=== PATIENT | female | born 2005 | race Caucasian/White ===

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

== ENCOUNTER 2025-06-12 12:01 | Day surgery (SDC) | payer SELFPAY, OTHER ==
[2025-06-12] VITALS (8 sets, daily range): BP systolic 86–111; BP diastolic 56–78; PULSE 61–83; RESP 16; TEMP 36.3–36.7; O2SAT 97–100; BMI 28.8
[2025-06-12] MEDS: Lactated Ringers 1,000 ML 15 ML IV (12:39)
[2025-06-12 12:41] LABS: Hematocrit 40.8 % (37-47); Hemoglobin 13.6 g/dL (12.0-15.0); Immature Granulocytes Count 0.010 X10^3/uL (0.0-0.0); Mean Corp Hgb Conc 33.3 g/dL (32-36); Mean Corpuscular Volume 84.8 fL (81-99); Mean Platelet Vol. 10.7 fl (6.2-12.0); NRBC Flagged by Analyzer 0 % (0-5); Platelet Count 228 K/mm3 (150-450); RBC Distribution Width CV 13.0 % (11.6-14.6); RBC Distribution Width SD 40.3 fl (35.1-43.9); Red Blood Count 4.81 M/mm3 (4.2-5.4); White Blood Count 5.4 K/mm3 (4.4-11.0)
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
--- NOTE | 2025-06-12 13:30 | POC_PTH ---
PATIENT: YOGI TUBBS LOC: [facility] [place] U#:[id number] AGE/SX: 20/F ROOM: RE06/12/[address]: Dr. Vira Vines MD : 2005 BED: DIS: 06/12/2025 SPEC #: [id number] RECD: 06/12/25 17:52 STATUS: MAGUI REPippa #: [id number] HARINDER: 06/12/25 13:[address]: Vira Vines DEPT: SURGICAL PATHOLOGY RECD BY: Glen Rasmussen ENTERED: 06/13/25 09:57 SP TYPE: PROD CONC OTHR DR: No Primary Care Phys Tissues: A - Product of conception, NOS Procedures: Surgery Specimen Level IV HEADER OPERATION: Dilation and curettage, suction PRE-OP DIAGNOSIS: Incomplete TISSUE SUBMITTED: A- Products of conception MICROSCOPIC DIAGNOSIS A. Uterine contents, "incomplete ", dilation and curettage/suction: - Products of conception including immature chorionic villi with red blood cells, chorioamnionic membrane, decidua, and tissue - see note. Note: Scant tissue consistent with umbilical cord is noted in A3. Although evaluation is limited by tangential orientation, I favor the presence of 3 vessels microscopically. MICROSCOPIC DESCRIPTION Slides are reviewed. GROSS DESCRIPTION A. Received in formalin labeled with the patient's name and date of . Designated as "products of conception" is a 28.9 g, 7.7 x 7.4 x 1.0 cm aggregate of pale clark tissue fragments, papilliferous tissue (suspicious for chorionic villi) and mucoid material. A possible, translucent umbilical cord with two visible vessels is identified, 1.5 cm length by 0.4 cm diameter. Clinical Review Specialist sections are submitted in 3 cassettes, to include the possible umbilical cord in cassette A3. VT 06/13/2025 CPT:13360
--- NOTE | 2025-06-12 13:40 | PCM.HP.BLA ---
History and Physical MR#: [id number] Acct: [id number] Name: YOGI TUBBS Rep #: [id number] : 2005 Provider: Dr. Vira Vines MD Age/Sex: 20/F [place] [facility] [place]: Signed Intake Vital Signs 05/13/2511:58 06/10/2508:06 06/10/2510:32 Height 5 ft 7 in 5 ft 7 in 5 ft 7 in Weight: 183 lb 6 oz 184 lb 8 oz BMI 28.7 28.9 BP 112/62 121/80 H Intake Visit Reasons: 10w4d, spotting, spoke to nutritional assistant last night Justice [employer] Judge Required: No Is patient in pain?: No Allergies No Known Allergies Allergy (Verified 06/10/25 10:38) Medications Medication Instructions Recorded Confirmed Type docosahexaenoic acid 200 mg mg PO 05/13/25 06/10/25 History capsule ( DHA) Is last menstrual period known: Yes Last Menstrual Period: 03/28/25 Post menopausal: No Patient : Yes : No PFSH Medical History Asthma Surgical History [place] teeth removed Social History adopted: No household members: spouse current occupation: [employer] current occupational exposures/hazards: No pets and animals: Yes pets and animals: farm animals history of recent travel: Yes ([place] 01/2025) sexually active: Yes Smoking Status: Former smoker second hand exposure: No alcohol intake: current alcohol intake frequency: holidays/special occasions only details: Not while substance use type: does not use well-balanced diet: daily or most days caffeine: Yes Type: coffee Number of servings: 1 eating out: rarely or never during the past year weight has: increased > 10 lbs what type of physical activity do you participate in: walking frequency: 3-4 times per week duration: 15-30 minutes/day gabe/sikhism: Sameer seatbelt use: sometimes do you feel safe at home: Yes additional social history: : [employer] - [employer] HPI 10w4d, spotting, spoke to nutritional assistant last night Details: YOGI TUBBS is a 20 year old who presents for early bleeding she is supposed to be 10 weeks and she is only measuring 9weeks with no fht and no color doppler flow seen. she denies any crmaping, no nausea or other symtpoms. Female Reproductive History Last Menstrual Period: 03/28/25 History 1 Elective abortions Hx Para 0 Spontaneous abortions 0 Hx # Term Pregnancies Ectopic pregnancies Hx # Pregnancies Multiple births # of living children ROS Const Constitutional: Reports as per HPI; Denies fever(s) ENT ENT: Reports system reviewed and no additional complaints, except as documented Cardio Card: Reports system reviewed and no additional complaints, except as documented Resp Resp: Reports system reviewed and no additional complaints, except as documented GI GI: Reports as per HPI : Reports as per HPI Musc Musc: Reports system reviewed and no additional complaints, except as documented Skin Skin/Breast: Reports system reviewed and no additional complaints, except as documented Neuro Neuro: Reports system reviewed and no additional complaints, except as documented Endo Endo: Reports system reviewed and no additional complaints, except as documented Exam Const General: healthy appearing, comfortable and no acute distress HENMT Head: normal to inspection and normocephalic Neck Neck: no lymphadenopathy noted Thyroid: thyroid normal Chest Chest palpation & inspection: normal inspection of the chest Resp Effort & Inspection: normal respiratory effort Cardio Rate: regular rate Rhythm: regular rhythm GI Inspection: normal to inspection Palpation: soft and nontender External Female Exam: normal external appearance Speculum Exam - Vagina: normal appearance of the vagina and vaginal bleeding Bimanual Exam- Vagina & Uterus: uterine shape normal and non-tender OB/External & Speculum: vaginal bleeding Speculum Exam: vaginal bleeding Skin General: no rashes or lesions noted Neuro General: no focal motor deficits Extrem General: normal to inspection and no pedal edema Psych Appearance: grossly normal Coding Level of Care Code Off vis,new,level 3 Diagnoses Incomplete O03.4 Assessment and Plan Assessment and Plan (1) Incomplete : Status: Acute Comment: 9 weeks marty. plan suction d and c Plan After discussing the patient's diagnosis and treatment plan options, patient wishes to proceed with surgical management. I have discussed with the patient the risks, benefits, and alternatives of the procedure which include but are not limited to risks of anesthesia, bleeding, infection, possible damage to bowel, bladder, or surrounding vasculature which could lead to additional surgery to evaluate any complications. Patient agrees to procedure and wishes to proceed. ACOG/uptodate references given for additional information regarding procedure. UPDATE- I have seen the patient and performed any clinically relevant updates to the history and physical exam. Vira Vines MD
--- NOTE | 2025-06-12 13:41 | OP.PCM_ITS ---
Problems Associated Problem List Diagnoses (1) Incomplete : Procedures Urinary/Genital 52xxx-59xxx: 21426 Trmt of incomplete Ab, any TM Operative Report (Standard) Operative Information Date of Procedure: 06/12/25 Pre-Operative Diagnosis: see problem list comments Post-Operative Diagnosis: same Surgery/Procedure Performed: suction dilation and curettage rn clinical coordinator: No Type of Anesthesia: IV Sedation and Local RN Documented Start/Stop Times: Operation Date: 06/12/25 13:30 Case Time Into Pre-Op 06/12/25 12:06 Anesthesia Start 06/12/25 13:43 Into Room 06/12/25 13:43 Procedure Start 06/12/25 13:56 Procedure End 06/12/25 14:01 Procedure Start Time: 13:56 Procedure Stop Time: 14:01 Select all DRAINS/GRAFTS/IMPLANTS that apply: None Estimated Blood Loss: 50 Specimen collected: Yes Description of specimen(s) removed: retained POC Description of surgery: Patient was taken to the operating room and placed under MAC local anesthesia. She was prepped and draped in the normal sterile fashion the dorsal lithotomy po sition. Bladder was drained of clear urine and anterior lip of the cervix was grasped and the uterus sounded to 8 cm. Cervix was progressively dilated to allow passage of a 8mm suction curette. Progressive passes were made removing the retained products of conception without complication. Sharp curettage confirmed complete removal of the retained products. All instruments were removed from the vagina and excellent hemostasis was noted and the patient was taken to recovery in stable condition. Surgical Findings: 9 week incomplete ab Complications Complications: No
[2025-06-12] MEDS: Lidocaine 1% (30 ml sdv) 30 ML Vial (14:04)
--- NOTE | 2025-06-12 14:08 | PCM.DC ---
Discharge Instructions DC O2, CPAP, BIPAP needs Home O2 Discharge instructions: No Dressing / Incision Discharge Activity: Return to Normal Activity, May Shower and May Take a Tub Bath (after 1 week) May resume sexual activity in: 1-2 weeks Weight Bearing Status: Weight bearing as tolerated Lifting Restrictions: none Dressing / Incision Call your doctor if you observe: Fever of 101 or Higher, Using more than 1 pad per hour, Shortness of breath and Uncontrolled pain Follow Up Care Please Follow Up With: Vira Vines MD When: Call [phone] to schedule appointment. Test Results: Test results from this visit will be discussed in further detail at your follow-up appointment, if applicable. Discharge Plan Admission Attending Provider: Vira Vines Primary Care Provider: Care Physician,No Primary Instructions Print Language: Indonesian Discharge Orders/Prescriptions Prescriptions: No Action NK Referrals / Follow Up: Madi Duong MD [Non-Staff] - Disposition Disposition (needs filled in before D/C Order can be placed): Home, Self Care
--- NOTE | 2025-06-12 14:15 | PCM.POST.ANE ---
Anesthesia: Postop Eval I Current Vital Signs Temperature: 97.4 F Pulse Rate: 69 Blood Pressure: 91/63 Respiratory Rate: 16 Pulse Ox: 97 Oxygen Delivery Method: Room Air Assessment Airway patent: Yes Spontaneous unlabored respirations: Yes Mental status: Awake nausea: No Vomiting: No Anesthesia Complication: No Fluid Hydration Crystalloid volume administer (ml): 400 Total IV fluid infused: 400 Progress Note Anesthesia document: Postop Eval 1 completed: Yes
--- NOTE | 2025-06-12 14:57 | POSTOPAN2_ITS ---
Anesthesia Postop Eval I Sum Postop Eval Completion status Anesthesia document: Postop Eval 1 completed: Yes Anesthesia Postop Eval I Summary Anesthesia Postop Eval I Summary: Anesthesia Postop Eval I: Assessment Summary Airway patent Yes 06/12/25 14:17 INTERVENTIONAL [email or web address].[email or web address] Spontaneous unlabored Yes 06/12/25 14:17 INTERVENTIONAL [email or web address].[email or web address] respirations Mental status Awake 06/12/25 14:17 INTERVENTIONAL [email or web address].[email or web address] nausea No 06/12/25 14:17 INTERVENTIONAL PHYSIATRIST.SJAN Vomiting No 06/12/25 14:17 INTERVENTIONAL PHYSIATRIST.MARICARMEN Anesthesia Postop Eval I: Fluid Summary Crystalloid volume administer 400 06/12/25 14:17 INTERVENTIONAL PHYSIATRIST.SJAN (ml) Colloids volume administered ( ml) Blood Product volume administered (ml) Total IV fluid infused 400 06/12/25 14:17 INTERVENTIONAL PHYSIATRIST.MARICARMEN Anesthesia Postop Eval I: Summary Notes Anesthesia Complication No 06/12/25 14:17 INTERVENTIONAL PHYSIATRIST.[email or web address] Anesthesia Complication Comment: Post-operative progress note Anesthesia: Postop Eval II Evaluation Mental status: Awake and Calm Pain Level: 1 nausea: No Vomiting: No Complications Anesthesia Complication: No
--- NOTE | 2025-06-12 14:57 | PCM.POSTANE2 ---
Anesthesia Postop Eval I Sum Postop Eval Completion status Anesthesia document: Postop Eval 1 completed: Yes Anesthesia Postop Eval I Summary Anesthesia Postop Eval I Summary: Anesthesia Postop Eval I: Assessment Summary Airway patent Yes 06/12/25 14:17 SHIPBOARD INTELLIGENCE ANALYST.PAMAN Spontaneous unlabored Yes 06/12/25 14:17 SHIPBOARD INTELLIGENCE ANALYST.MARICARMEN respirations Mental status Awake 06/12/25 14:17 SHIPBOARD INTELLIGENCE ANALYST.SJAN nausea No 06/12/25 14:17 SHIPBOARD INTELLIGENCE ANALYST.SJAN Vomiting No 06/12/25 14:17 SHIPBOARD INTELLIGENCE ANALYST.[email or web address] Anesthesia Postop Eval I: Fluid Summary Crystalloid volume administer 400 06/12/25 14:17 SHIPBOARD INTELLIGENCE ANALYST.SJAN (ml) Colloids volume administered ( ml) Blood Product volume administered (ml) Total IV fluid infused 400 06/12/25 14:17 SHIPBOARD INTELLIGENCE ANALYST.MARICARMEN Anesthesia Postop Eval I: Summary Notes Anesthesia Complication No 06/12/25 14:17 SHIPBOARD INTELLIGENCE ANALYST.[email or web address] Anesthesia Complication Comment: Post-operative progress note Anesthesia: Postop Eval II Evaluation Mental status: Awake and Calm Pain Level: 1 nausea: No Vomiting: No Complications Anesthesia Complication: No
== END 2025-06-12 15:01 | disposition home or self-care (01) ==
LOC: SDC 12:03 → AC 12:04
PROVIDERS: Referring Provider Obstetrics & Gynecology; Visit Provider Obstetrics & Gynecology
PROC: (CPT 59812; principal; 2025-06-12 13:15)
DX: O03.4 Incomplete spontaneous abortion without complication (principal); Z87.891 Personal history of nicotine dependence
CPT/HCPCS: 59812; 01965; 85025; 86850; 86900; 86901; 88305; J2405